=== PATIENT | female | born 1980 | race Hispanic/Latino ===

== ENCOUNTER 2020-06-07 13:07 | Emergency (ER) | payer BC, SELFPAY ==
[2020-06-07] MEDS ORDERED: Ondansetron PF 4 MG/2 ML Vial ONE (14:13)
[2020-06-07 15:16] LABS: #Eosinphils 0.1 10x3/uL (0.0-0.5); #Monocytes 0.8 10x3/uL (0.0-1.1); #Neutrophils 6.2 10x3/uL (1.5-8.4); %Basophils 0.4 % (0.0-2.0); %Eosinophils 1.2 % (0.0-6.0); %Lymphocytes 31.7 % (18.0-47.0); %Monocytes 7.2 % (0.0-10.0); %Neutrophils 59.2 % (40.0-75.0); Hemoglobin 14.4 g/dL (12.0-15.5); Mean Corpuscular HGB CONC 33.4 g/dL (32.0-36.0); Mean Corpuscular Hemoglobin 32.7 pg (27.0-33.0); Mean Corpuscular Volume 97.7 fl (81.6-98.3); Mean Platelet Volume 9.6 fl (7.4-10.4); Platelet Count 321 10x3/uL (150-450); RBC Distribution Width 11.9 % (11.5-14.5); Red Blood Cell (RBC) Count 4.41 10x6/uL (3.90-5.03); White Blood Cell (WBC) Count 10.4 10x3/uL (3.5-10.5)
[2020-06-07] MEDS ORDERED: Ketorolac Tromethamine 30 MG/ML VIAL ONE (15:17)
== END 2020-06-07 15:42 | disposition home or self-care (01) ==
LOC: CSHERS 13:07
DX: O03.4 Incomplete spontaneous abortion without complication (principal)
CPT/HCPCS: 84702; 85025; 96374; 96375; J1885; J2405